=== PATIENT | male | born 1975 | race Caucasian/White ===

== ENCOUNTER 2017-02-09 01:15 | Emergency (ER) | payer MEDICAID ==
[~2017-02-09] VITALS: Ht 167.6 cm; Wt 90.7 kg
[2017-02-09 01:20] VITALS: BP 136/92
--- NOTE | 2017-02-09 01:26 | NUR ---
PT TAKEN TO BED 4
--- NOTE | 2017-02-09 01:27 | NUR ---
PT IS 41Y/M WITH C/O COUGH, NASAL CONGESTION FOR 3 DAYS
--- NOTE | 2017-02-09 01:30 | NUR ---
Dr. Chan evaluating patient at bedside.
[2017-02-09 01:45] VITALS: BP 131/81
--- NOTE | 2017-02-09 01:45 | NUR ---
Patient discharged with v/s stable. Written and verbal after care instructions given and explained. Patient alert, oriented and verbalized understanding of instructions. Ambulatory with steady gait. All questions addressed prior to discharge. ID band removed. Patient advised to follow up with PMD. Rx of DEXTROMETHORPHAN HYDROBROMIDE/PROMETHAZINE HYDROCHLORIDE 15MG-6.25MG/5ML SYRUP PO given. Patient educated on indication of medication including possible reaction and side effects. Opportunity to ask questions provided and answered.
== END 2017-02-09 01:45 | disposition home or self-care (01) ==
LOC: MED 01:15
DX: B34.9 Viral infection, unspecified (principal); R03.0 Elevated blood-pressure reading, without diagnosis of hypertension